=== PATIENT | female | born 1995 | race Caucasian/White ===

== ENCOUNTER 2021-03-12 04:09 | Emergency (ER) | payer OTHER, MEDICAID, SELFPAY ==
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
[2021-03-12 04:22] VITALS: BP 132/91; PULSE 114; RESP 17; TEMP 37.3; O2SAT 100; BMI 19.0
[2021-03-12 04:27] LABS: Pregnancy Test Urine Negative (Negative)
--- NOTE | 2021-03-12 05:16 | PC.NURSE ---
Pt came out of room, stated she had left purse on her front seat of her car and would be back in. Pt has not returned.
[2021-03-12 05:57] LABS: Urine N gonorrhoeae DETECTED
[2021-03-12 05:59] LABS: Urine Chlamydia NOT DETECTED
== END 2021-03-12 05:15 | disposition left against medical advice (07) ==
PROVIDERS: Emergency Provider Emergency Medicine
DX: A54.03 Gonococcal cervicitis, unspecified (principal)
CPT/HCPCS: 81025; 87491; 87591; 99282